=== PATIENT | male | born 1955 | race Caucasian/White ===

== ENCOUNTER 2017-04-14 15:21 | Inpatient (IN) | payer OTHER ==
[~2017-04-14] VITALS: Ht 174 cm; Wt 85.2 kg
[2017-04-14 15:43] LABS: BASOPHIL COUNT 0.1 K/uL (0-0.1); EOSINOPHIL (%) 4.2 % (0-5); EOSINOPHIL COUNT 0.6 K/uL (0-0.3); HEMATOCRIT 45.9 % (38.0-50.0); IMMATURE GRANULOCYTE COUNT 0.1 K/uL; INSTRUMENT ABS NEUTROPHIL CT 9.4 K/uL; LYMPHOCYTE COUNT 2.2 K/uL (1.0-2.8); MCH 29.6 PG (29.0-34.0); MCHC 33.1 G/DL (30.0-36.0); MCV 89.3 FL (86-99); MEAN PLAT.VOLUME 10.8 uM^3 (9.0-12.4); MONOCYTE (%) 6.5 % (3-12); MONOCYTE COUNT 0.9 K/uL (0-0.8); NEUTROPHIL (%) 70.9 % (45-76); NEUTROPHIL COUNT 9.4 K/uL (1.8-6.4); PLATELET COUNT 246 K/uL (156-360); RBC DIS.WIDTH-CV 13.2 % (11.8-14.6); RBC DIS.WIDTH-SD 43.3 % (39-53); RED BLOOD COUNT 5.14 M/uL (4.00-5.50); WHITE BLOOD COUNT 13.2 K/uL (4.1-10.2)
[2017-04-14 15:55] LABS: AMYLASE 78 IU/L (1-118); CHLORIDE 111 mEq/L (99-109); POTASSIUM 3.9 mEq/L (3.7-5.4); SODIUM 142 mEq/L (136-147)
[2017-04-14 15:57] LABS: GLUCOSE 104 mg/dL (70-99)
[2017-04-14 15:59] LABS: ANION GAP 7 MEQ/L (2-14)
[2017-04-14 16:00] LABS: SERUM ETHYL ALCOHOL < 10 mg/dL
[2017-04-14 16:02] LABS: GFR ESTIMATE (CALCULATED) > 59 mL/min/; UREA NITROGEN (BUN) 16 mg/dL (9-23)
[2017-04-14 16:04] LABS: LIPASE 116 U/L (1.0-51.0)
[2017-04-14 20:15] LABS: ADD MIUA? NO; BILIRUBIN NEGATIVE; BLOOD NEGATIVE; COLOR YELLOW ((YELLOW)); GLUCOSE (STRIP) NEGATIVE; KETONES 5; LEUKOCYTES NEGATIVE; NITRITE NEGATIVE; PROTEIN (STRIP) NEGATIVE; UCUL ADDED? NO; UROBILINOGEN 0.2 MG/DL (0.2-1.0)
[2017-04-14 20:27] LABS: AMPHETAMINE NEGATIVE (500 ng/mL); BARBITURATES NEGATIVE (200 ng/mL); BENZODIAZEPINES NEGATIVE (150 ng/mL); COCAINE NEGATIVE (150 ng/mL); INTERNAL CONTROLS VALID? YES; METHADONE NEGATIVE (200 ng/mL); METHAMPHETAMINE NEGATIVE (500 ng/mL); OPIATES (MORPHINE) NEGATIVE (100 ng/mL); OXYCODONE NEGATIVE (100 ng/mL); PHENCYCLIDINE NEGATIVE (25 ng/mL); PROPOXYPHENE NEGATIVE (300 ng/mL); THC CANNABINOIDS NEGATIVE (50 ng/mL); TRICYCLIC ANTIDEPRESSANTS NEGATIVE (300 ng/mL)
[2017-04-14 20:35] LABS: SPECIFIC GRAVITY 1.055 (1.000-1.030)
[2017-04-14 23:46] VITALS: BP 135/73
[2017-04-15] VITALS (7 sets, daily range): BP systolic 98–159; BP diastolic 54–86
[2017-04-15 06:18] LABS: ALKALINE PHOSPHATASE 46 IU/L (3-129); ANION GAP 7 MEQ/L (2-14); CHLORIDE 108 MEQ/L (99-109); GFR ESTIMATE (CALCULATED) > 59 mL/min/; GLUCOSE 100 mg/dL (70-99); POTASSIUM 3.9 MEQ/L (3.7-5.4); SAMPLE HEMOLYSIS CHECK 0; SAMPLE ICTERIC CHECK 0; SAMPLE LIPEMIA CHECK 0; SODIUM 140 MEQ/L (136-147); UREA NITROGEN (BUN) 14 mg/dL (9-23)
[2017-04-15 06:24] LABS: HEMATOCRIT 39.5 % (38.0-50.0); MCH 29.2 PG (29.0-34.0); MCHC 32.9 G/DL (30.0-36.0); MCV 88.8 FL (86-99); MEAN PLAT.VOLUME 10.8 uM^3 (9.0-12.4); PLATELET COUNT 208 K/uL (156-360); RBC DIS.WIDTH-CV 13.4 % (11.8-14.6); RBC DIS.WIDTH-SD 43.8 % (39-53); RED BLOOD COUNT 4.45 M/uL (4.00-5.50); WHITE BLOOD COUNT 9.4 K/uL (4.1-10.2)
[2017-04-15] MEDS ORDERED: LO-DOSE ASPIRIN81 M1 PO (11:59)
[2017-04-15 12:16] LABS: INTER. NORMALIZED RATIO 1.1; PROTHROMBIN TIME 13.1 SEC (10.2-12.9)
[2017-04-15 12:19] LABS: PTT 33.3 SEC (25-37)
[2017-04-16 03:39] VITALS: BP 139/70
[2017-04-16 08:15] VITALS: BP 155/76
[2017-04-16] MEDS ORDERED: Blood pressure med PO (10:24)
[2017-04-16 12:23] VITALS: BP 149/77
[2017-04-16 16:10] VITALS: BP 137/76
[2017-04-16 17:40] VITALS: BP 140/77
[2017-04-16 21:25] VITALS: BP 139/74
[2017-04-17 07:49] VITALS: BP 165/72
[2017-04-17] MEDS ORDERED: TAMSULOSIN HCL0.4 MG PO (11:19)
[2017-04-17] MEDS ORDERED: LOPRESSOR25 MG PO (11:19)
[2017-04-17] MEDS ORDERED: CHLORZOXAZONE500 MG PO (11:19)
[2017-04-17] MEDS ORDERED: HYDROCODON-ACE1 EAC7 PO (11:19)
== END 2017-04-17 13:13 | disposition home or self-care (01) | DRG 516 ==
LOC: TRA 15:21 → EDOF 19:25 → 3EAST 19:25 → ENRESERV 19:28 → 3EAST 23:35
PROVIDERS: Emergency Medicine; Physician Assistant; Surgery
PROC: 0PS904Z Reposition Right Clavicle with Internal Fixation Device, Open Approach (ICD-10-PCS; principal; 2017-04-16)
DX: S42.021A Displaced fracture of shaft of right clavicle, initial encounter for closed fracture (principal); S06.0X9A Concussion with loss of consciousness of unspecified duration, initial encounter; G35 Multiple sclerosis; R40.2412 Glasgow coma scale score 13-15, at arrival to emergency department; R41.3 Other amnesia; R41.0 Disorientation, unspecified; S20.219A Contusion of unspecified front wall of thorax, initial encounter; S30.1XXA Contusion of abdominal wall, initial encounter; S00.01XA Abrasion of scalp, initial encounter; I10 Essential (primary) hypertension; E78.5 Hyperlipidemia, unspecified; N40.0 Benign prostatic hyperplasia without lower urinary tract symptoms; V49.40XA Driver injured in collision with unspecified motor vehicles in traffic accident, initial encounter
CPT/HCPCS: 70450; 71010; 71260; 72125; 73000; 74177; 76000; 80048; 80053; 81003; 82150; 83690; 85025; 85027; 85610; 85730; 86850; 86900; 86901; 93005; 99281; 99285; C1713; G0480; J0131; J0330; J0690; J1100; J1170; J1650; J2250; J2405; J3010; J7120